=== PATIENT | female | born 1945 | race Asian ===

== ENCOUNTER 2016-02-23 15:35 | Outpatient (RCR) | payer MEDICARE | END 2016-03-20 | disposition home or self-care (01) | LOC: PTY 15:35 | DX: M25.562 Pain in left knee (principal) | CPT/HCPCS: 97110; 97140; G0283; G8978; G8979 ==

== ENCOUNTER 2016-03-22 15:45 | Outpatient (RCR) | payer MEDICARE | END 2016-04-17 | disposition home or self-care (01) | LOC: PTY 15:45 | DX: M25.562 Pain in left knee (principal) | CPT/HCPCS: 97110; 97140; G0283 ==

== ENCOUNTER 2016-04-25 12:00 | Outpatient (RCR) | payer MEDICARE | END 2016-05-18 | disposition home or self-care (01) | LOC: PTY 12:00 | DX: M25.562 Pain in left knee (principal); Z96.652 Presence of left artificial knee joint | CPT/HCPCS: 97110; 97140; G0283 ==

== ENCOUNTER 2016-05-21 14:00 | Outpatient (RCR) | payer MEDICARE | END 2016-06-17 | disposition home or self-care (01) | LOC: PTY 14:00 | DX: Z96.652 Presence of left artificial knee joint (principal) | CPT/HCPCS: 97110; 97140; G0283; G8979; G8980 ==